=== PATIENT | female | born 1985 | race Caucasian/White ===

== ENCOUNTER 2023-07-28 08:11 | Inpatient (IN) ==
[2023-07-28] MEDS ORDERED: Buffered Lidocaine 1% SYRIN 1 ml INTRADERM ONE (09:14)
[2023-07-28] MEDS ORDERED: Promethazine INJ(RESTRICTED) 25 MG/ML 1 ml VIAL IV PRN (09:14)
[2023-07-28] MEDS ORDERED: Lidocaine 1% VIAL 10 MG/ML 30 ML VIAL INJ PRN (09:14)
[2023-07-28] MEDS ORDERED: Nalbuphine 10 MG/ML 1 ML VIAL IV PRN (09:14)
[2023-07-28 09:41] LABS: ABS Lymphocytes 1.2 10^3/uL (1.0-4.8); ABS Monocytes 0.6 10^3/uL (0.0-0.9); ABS Neutrophils 6.4 10^3/uL (1.5-7.6); Eosinophil % 0.3 %; Hematocrit 38.4 % (35-45); Hemoglobin 13.1 g/dL (11.5-14.3); Lymphocyte % 14.5 %; Mean Corpuscular Hemoglobin 32.6 pg (27-33); Mean Corpuscular Hgb Conc 34.1 g/dL (31-36); Mean Corpuscular Volume 95.5 fL (80-97); Mean Platelet Volume 11.4 fL (7.5-11.2); Nucleated Red Blood Cells % 0.1 %/100WBC (0.0-0.8); Platelet Count 92 10^3/uL (150-450); Red Blood Count 4.02 10^6/uL (3.63-4.92); Red Cell Distribution Width 13.4 % (12-17); White Blood Count 8.2 10^3/uL (3.8-11.8)
[2023-07-28] MEDS ORDERED: Lactated Ringers 1000 ml BAG 1,000 ML IV SCH ×2 (10:00→20:00)
[2023-07-28] MEDS: miSOPROStol 100 mcg TAB VAGINAL ONE (10:16)
[2023-07-28 13:24] LABS: Urine Benzodiazepine Screen None Detected (None Detect); Urine Cannabinoids Screen None Detected (None Detect); Urine Opiates Screen None Detected (None Detect)
[2023-07-28] MEDS: miSOPROStol 100 mcg TAB PO ONE (15:11)
[2023-07-28] MEDS: Lactated Ringers 1000 ml BAG 1,000 ML IV ONE (16:43)
[2023-07-28] MEDS ORDERED: Ondansetron 4 mg VIAL 2 MG/ML 2 ml VIAL ONE (19:24)
[2023-07-28] MEDS ORDERED: Phenylephrine IV 10 MG/ML 1 ml VIAL ONE (19:25)
[2023-07-28] MEDS ORDERED: Morphine PF AMP (0.5MG/ML) 5 MG/10 ML AMP ONE (19:25)
[2023-07-28] MEDS ORDERED: fentaNYL 100 mcg/2 ml 50 MCG/ML VIAL ONE (19:25)
[2023-07-28] MEDS ORDERED: Witch Hazel PAD JAR TOPICAL PRN (19:34)
[2023-07-28] MEDS ORDERED: Dibucaine 1% OINT 28.35 GM TUBE PR PRN (19:34)
[2023-07-28] MEDS ORDERED: Glycerin ADULT 2.4 gm SUPP PR PRN (19:34)
[2023-07-28] MEDS: Sodium Citrate/Citric Acid LIQ 15 ML UDC PO ONE (20:11)
[2023-07-28] MEDS: Terbutaline INJ 1 MG/ML 1 ml VIAL SUBCUT ONE (20:39)
[2023-07-28] MEDS ORDERED: [UNRECOGNIZED DRUG - OTHER] PO SCH (21:00)
[2023-07-28] MEDS: ceFOXitin 2 GM IVPREMIX 2 GM/50 ML BAG IVPB ONE (21:03)
[2023-07-28] MEDS ORDERED: Oxytocin 10 UNITS/ML 1 ML VIAL ONE (21:13)
[2023-07-28] MEDS ORDERED: Prochlorperazine 5 mg/ml 2 ml VIAL (10 mg) ONE (21:23)
[2023-07-28] MEDS ORDERED: Acetaminophen IV 1 GM/100ML 1,000 MG/100 ML BAG IV ONE (21:28)
[2023-07-28] MEDS ORDERED: Dexamethasone IV 4 MG/ML VIAL 1 ml VIAL ONE (21:37)
[2023-07-28] MEDS ORDERED: Naloxone 0.4 mg VIAL 0.4 mg/ml 1 ml VIAL IV PUSH PRN (21:49)
[2023-07-28] MEDS ORDERED: Acetaminophen IV 1 GM/100ML 1,000 MG/100 ML BAG IV PRN (21:49)
[2023-07-28] MEDS ORDERED: Metoclopramide 5 MG/ML VIAL (10 mg) IV PRN (21:49)
[2023-07-28 22:08] LABS: Urine Appearance Clear; Urine Bilirubin Negative (Negative); Urine Blood 1+ (Negative); Urine Color Straw; Urine Glucose Negative (Negative); Urine Ketones Negative (Negative); Urine Nitrite Negative (Negative); Urine Protein Negative (Negative); Urine Specific Gravity 1.004 (1.002-1.030); Urine Urobilinogen Negative (Negative)
[2023-07-28 22:35] LABS: Urine Bacteria Absent (Absent); Urine Red Blood Cell 1+(3-5/hpf) (Absent); Urine White Blood Cell Trace(0-5/hpf) (Absent)
[2023-07-29] MEDS: Oxytocin in LR 20,000 MILLI.UNIT/1,000 ML BAG IV SCH (00:30)
[2023-07-29] MEDS: Methylergonovine 0.2 mg AMPULE 1 ml AMP ONE (03:11)
[2023-07-29] MEDS: Carboprost Tromethamine 250 mcg 1 ml VIAL ONE (03:11)
[2023-07-29 06:39] LABS: ABS Monocytes 0.6 10^3/uL (0.0-0.9); ABS Neutrophils 17.7 10^3/uL (1.5-7.6); Hematocrit 36.3 % (35-45); Hemoglobin 12.6 g/dL (11.5-14.3); Lymphocyte % 4.9 %; Mean Corpuscular Hgb Conc 34.7 g/dL (31-36); Mean Platelet Volume 11.8 fL (7.5-11.2); Platelet Count 95 10^3/uL (150-450); Red Blood Count 3.82 10^6/uL (3.63-4.92); Red Cell Distribution Width 13.3 % (12-17); White Blood Count 19.3 10^3/uL (3.8-11.8)
[2023-07-29] MEDS: Ondansetron 4 mg VIAL 2 MG/ML 2 ml VIAL IV PRN (08:43)
[2023-07-29] MEDS: Enoxaparin 40 MG/0.4 ML SYR SUBCUT SCH (10:40)
[2023-07-31 08:34] VITALS: BP 114/67
== END 2023-07-31 14:00 | disposition home or self-care (01) | DRG 540 ==
LOC: MCHOBOUT 08:11 → MCHOB 08:36
PROVIDERS: ADMIT Obstetrics & Gynecology; ATTEND Obstetrics & Gynecology